=== PATIENT | male | born 1980 | race Caucasian/White ===

== ENCOUNTER 2019-05-17 18:00 | Emergency (ER) | payer SELFPAY ==
[~2019-05-17] VITALS: Ht 170.2 cm; Wt 79.4 kg
--- NOTE | 2019-05-17 18:24 | ED Integumentary General ---
General Chief Complaint: Allergic Reaction Stated Complaint: RASH ON BOTH ARMS Source: patient Exam Limitations: no limitations History of Present Illness Date Seen by Provider: May 17, 2019 Time Seen by Provider: 18:08 Initial Comments Here with report of rash to both arms. Started on his hands and then moved up to his arms only in the sun exposed areas. He states that he's had this rash, each time he's had a moderate amount of sun exposure for many years. Does report that he had a bad sunburn as a child. Patient did take Benadryl and that do not really help. Has had prednisone or steroid in the past and that has helped. Also noted to be hypertensive and states that he is usually on lisinopril 10 mg but he has been out of that since he moved here. He is seeking a new doctor. Denies other concerns. Timing/Duration: getting worse, other (2-3 days) Severity: moderate Location: extremities (arms and some exposed areas to the sleeve) Possible Cause: other Modifying Factors: improves with antihistamine Associated Symptoms: rash Allergies and Home Medications Patient Home Medication List Home Medication List Reviewed: Yes Review of Systems Review of Systems Constitutional: see HPI; No chills, No fever Respiratory: no symptoms reported Cardiovascular: no symptoms reported Skin: see HPI, pruritus, rash Past Kepbzrp-Ykojlq-Yzhcqh Hx Past Med/Social Hx: Reviewed Nursing Past Med/Soc Hx Patient Social History Alcohol Use: Denies Use Recreational Drug Use: No Smoking Status: Current Everyday Smoker Recent Foreign Travel: No Contact w/Someone Who Travel: No Past Medical History Surgeries: Yes Abdominal Respiratory: No (to have surgeries or other medical history significant) Cardiac: Yes Hypertension Family Medical History No Pertinent Family Hx Physical Exam Vital Signs Capillary Refill : General Appearance: WD/WN, no apparent distress Cardiovascular: regular rate, rhythm, no murmur Respiratory: lungs clear, normal breath sounds Skin: warm/dry Skin Problem Location: upper extremities Skin Problem Character: macules, rash Progress/Results/Core Measures Progress Progress Note : Progress Note Seen and evaluated. Discussed treatment options. We will prescribe prednisone for 5 days. Also due to his hypertension, I will prescribe one month of lisinopril 10 mg tablets and he will seek medical care. Discharged home with return precautions. Patient verbalize understanding instructions and agreement with plan. Departure Impression Primary Impression: Rash Additional Impression: Hypertension Qualified Codes: I10 - Essential (primary) hypertension Disposition: HOME, SELF-CARE Condition: Improved Departure-Patient Inst. Decision time for Depature: 18:22 Referrals: NO,LOCAL PHYSICIAN (PCP/Family) Primary Care Physician Patient Instructions: High Blood Pressure (DC), Skin Rash (DC) Add. Discharge Instructions: All discharge instructions reviewed with patient and/or family. Voiced understanding. Exposure to the sun and you may use sunscreen such as sunscreen for faces at least 50 sunblock. It is very important that he seek local physician and establish care due to your blood pressure. Take medications as directed. Return for worse pain, fever, vomiting, increasing rash for blood pressure or other concerns as needed. You may use Benadryl the generic diphenhydramine 25 mg every 4-6 hours as needed for itching. Scripts Lisinopril (Lisinopril) 10 Mg Tablet 10 MG PO DAILY, #30 TAB 0 Refills Prov: ALEN PACHECO MD 05/17/19 Prednisone (Prednisone) 20 Mg Tab 40 MG PO DAILY, #10 TAB 0 Refills Prov: ALEN PACHECO MD 05/17/19 Work/School Note: Local Medical Staff Listing ALEN PACHECO MD May 17, 2019 18:24
[2019-05-17] MEDS ORDERED: PRD20T PO (18:25)
[2019-05-17] MEDS ORDERED: LISI10TA2 PO (18:25)
[2019-05-17 18:26] VITALS: BP 156/113
--- OUTSIDE RECORDS SUMMARY | 2019-05-17 18:41 | XMS REPORT | Continuity of Care Document ---
Author Organization Unknown Address Unknown Phone Unavailable Allergies There is no data. Medications There is no data. Problems Date Dx Coded Attending Type Code Diagnosis Diagnosed By 03/16/2019 LARRY OLMOS V [id number] Toe Pain 03/16/2019 LARRY OLMOS V S97.111A Crushing injury of right great toe, initial encounter 03/31/2019 LARRY OLMOS V [id number] Foot Injury 03/31/2019 LARRY OLMOS V S97.111A Crushing injury of right great toe, initial encounter Procedures There is no data. Results Radiology Report from [id number] on 03/16/2019 16:27:44 PROCEDURE: XR FOOT RIGHT AP LATERAL AND OBLIQUESTUDY DATE: March 16, 2019CLINICAL INDICATION / HISTORY: crush injury, right toe pain, swelling. Crushing injury of right great toe initial encounterTECHNIQUE: AP, lateral and oblique views of the right foot.COMPARISON: None availableFINDINGS: No acute fracture, dislocation, or joint pathology. Small os trigonum noted. Normal mineralization and alignment. The soft tissues are unremarkable.IMPRESSION: No acute osseous abnormality.Electronically signed by Ishmael Brown, MDDT: 03/16/2019 4:26 PM Encounters ACCT No. Visit Date/Time Discharge Status Pt. Type Provider Facility Loc./Unit Complaint [id number] 03/31/2019 10:29:59 03/31/2019 23:59:59 CLS Outpatient LARRY OLMOS [id number] 03/16/2019 15:42:27 03/16/2019 23:59:59 CLS Outpatient [facility] CCTXR [id number] 03/16/2019 15:14:42 03/16/2019 23:59:59 CLS Outpatient LARRY OLMOS
== END 2019-05-17 18:27 | disposition home or self-care (01) ==
LOC: ER 18:02
DX: R21 Rash and other nonspecific skin eruption (principal); I10 Essential (primary) hypertension; F17.210 Nicotine dependence, cigarettes, uncomplicated
CPT/HCPCS: 99282

== ENCOUNTER 2022-07-25 21:03 | Emergency (ER) | payer SELFPAY ==
[~2022-07-25] VITALS: Ht 167 cm; Wt 77.0 kg
[~2022-07-25 21:03] MED LIST: LISI10TA25 PO; PRD20T PO
[2022-07-25] MEDS ORDERED: IMATREX (21:20)
[2022-07-25] MEDS ORDERED: cogentin (21:20)
[2022-07-25] MEDS ORDERED: haldol (21:20)
[2022-07-25] MEDS ORDERED: ONDANSETRON 4 MG (ZOFRAN) ORAL DISSOLVE TAB PO STA (22:30)
[2022-07-25] MEDS ORDERED: ORPHENADRINE 60 MG/2 ML (NORFLEX) AMP (ED ONLY) IM ONE (22:30)
[2022-07-25] MEDS ORDERED: KETOROLAC 60 MG/2 ML VIAL IM ONE (22:30)
[2022-07-25] MEDS ORDERED: diphenhydrAMINE 50 MG/ML INJ (BENADRYL) IM ONE (22:30)
[2022-07-25] MEDS ORDERED: BUTA-249 PO (22:34)
[2022-07-25] MEDS ORDERED: ONDA4TAB11 PO (22:34)
--- NOTE | 2022-07-25 22:34 | ED Headache ---
General Chief Complaint: Head/Cervical Problems Stated Complaint: HEADACHE Nursing Triage Note: c/o migraine marshall x1 week. started on imitrex without improvement Source: patient History of Present Illness Date Seen by Provider: Jul 25, 2022 Time Seen by Provider: 22:21 Initial Comments PT ARRIVES VIA POV FROM HOME--STATES HIS GIRLFRIEND DROVE HIM HERE, AND HE LIVES WITH HER C/O HEADACHE STATES HE HAS HAD "BAD MIGRAINES FOR 3 YEARS"--WORK UP'S IN THE PAST HAVE ALL BEEN NEGATIVE. HE HAS NEVER SEEN A NEUROLOGIST OR HEADACHE SPECIALIST THIS HEADACHE STARTED 1 WEEK AGO, IS IN THE BACK OF HIS HEAD HEADACHE IS CONSTANT AND NOTHING WORSENS OR IMPROVES THE HEADACHE. HE WAS SEEN AT [facility] LAST WEEK FOR THIS PROBLEM, AND WAS GIVEN RX FOR IMITREX ( HAS NEVER TAKEN BEFORE) STATES HE HAS TAKEN 1 IMITREX 8 HOURS AGO--NO RELIEF. IS THE FIRST AND ONLY TIME HE HAS TAKEN IT . HAS NOT TAKEN ANYTHING ELSE AT ANY TIME IN THE LAST WEEK FOR THIS HEADACHE. + NAUSEA, NO VOMITING X 2 DAYS. NO NAUSEA NOW. + DIZZINESS NO DIARRHEA NO VISION CHANGES NO PARESTHESIAS OR MOTOR DEFICITS NO NECK PAIN OR STIFFNESS NO FEVER OR RECENT ILLNESS NO TICK/INSECT/MOSQUITO BITES. STATES HE HAS HAD INCREASED STRESS AT WORK FOR THE LAST WEEK. WORKS FOR A "[employer]" [employer]. NO KNOWN SICK CONTACTS. PCP: [facility] Allergies and Home Medications Allergies Coded Allergies: No Known Drug Allergies (Unverified , 07/25/22) Patient Home Medication List Home Medication List Reviewed: Yes Butalb/Acetaminophen/Caffeine (Esgic 50-325-40 mg Tablet) 50 Mg-325 Mg-40 Mg Tablet, 1-2 EACH PO Q6 Prescribed by: DEVANTE SHABAZZ on 07/25/222233 Lisinopril (Lisinopril) 10 Mg Tablet, 10 MG PO DAILY Prescribed by: ALEN PACHECO on 05/17/191824 Ondansetron (Ondansetron Odt) 4 Mg Tab.rapdis, 4 MG PO Q4H Prescribed by: DEVANTE SHABAZZ on 07/25/222233 Prednisone (Prednisone) 20 Mg Tab, 40 MG PO DAILY Prescribed by: ALEN PACHECO on 05/17/19 182 [cogentin] , (Reported) Entered as Reported by: JUD ROSADO on 07/25/222119 Last Action: New Order [haldol] , (Reported) Entered as Reported by: JUD ROSADO on 07/25/222119 Last Action: New Order [imatrex] , (Reported) Entered as Reported by: JUD ROSADO on 07/25/222119 Last Action: New Order Review of Systems Review of Systems Constitutional: see HPI, dizziness Eyes: No Symptoms Reported Ears, Nose, Mouth, Throat: no symptoms reported Respiratory: no symptoms reported Cardiovascular: no symptoms reported Gastrointestinal: see HPI Genitourinary: no symptoms reported Musculoskeletal: no symptoms reported Skin: no symptoms reported Psychiatric/Neurological: See HPI Past Ffyazdb-Cvdksz-Dqdgyp Hx Patient Social History Tobacco Use?: Yes Tobacco type used: Cigarettes Smoking Status: Smoker Current Status UNK Substance use?: No Alcohol Use?: No Pt feels they are or have been: No Immunizations Up To Date First/Initial COVID19 Vaccinat: na Seasonal Allergies Seasonal Allergies: No Past Medical History Surgery/Hospitalization HX: headaches, htn, depression, psych Surgeries: Yes (HERNIA REPAIR) Abdominal Respiratory: No Cardiac: Yes Hypertension Neurological: Yes Headaches /Migraines Genitourinary: No Gastrointestinal: No Musculoskeletal: No Endocrine: No HEENT: No Cancer: No Psychosocial: No Integumentary: Yes (rash in sunlight) Blood Disorders: No Family Medical History No Pertinent Family Hx Physical Exam Vital Signs Vital Signs - First Documented 07/25/22 21:16 Temp 37.1 Pulse 77 Resp 16 B/P (MAP) 154/104 (121) Pulse Ox 97 O2 Delivery Room Air Capillary Refill : Less Than 3 Seconds Height, Weight, BMI Height: 5'7.00" Weight: 175lbs. oz. 79.410058ns; 27.00 BMI Method:Stated General Appearance: WD/WN, no apparent distress, other (FILTHY, MALODOROUS. DOES NOT APPEAR TO BE IN ANY DISCOMFORT OR DISTRESS. ) HEENT: PERRL/EOMI, normal ENT inspection, TMs normal, pharynx normal, other (NO SINUS TENDERNESS OR NASAL DRAINAGE. EXTENSIVE DENTAL DECAY WITH MOST TEETH DECAYED DOWN TO GUMS) Neck: non-tender, full range of motion, supple, normal inspection Cardiovascular: regular rate, rhythm, no murmur Respiratory: normal breath sounds Gastrointestinal: non tender, soft Back: normal inspection, no CVA tenderness Extremities: normal range of motion, non-tender, no pedal edema Psychiatric: alert, oriented x 3 Crainal Nerves: normal hearing, normal speech, PERRL Coordination/Gait: normal gait Motor/Sensory: no motor deficit, no sensory deficit, no pronator drift Skin: normal color, warm/dry Progress/Results/Core Measures Results/Orders My Orders Orders - DEVANTE SHABAZZ DO Ondansetron Oral Dissolve Tab (Zofran (07/25/22 22:30) Orphenadrine Inj (Ed Only) (Norflex Inje (07/25/22 22:30) Ketorolac Injection (Toradol Injection) (07/25/22 22:30) Diphenhydramine Injection (Benadryl Inje (07/25/22 22:30) Im/Sub-Q Injection Non-Ab Ed (07/25/22 ) Vital Signs/I&O 07/25/22 07/25/22 21:16 22:52 Temp 37.1 37.1 Pulse 77 72 Resp 16 16 B/P (MAP) 154/104 (121) 152/99 Pulse Ox 97 98 O2 Delivery Room Air Room Air Blood Pressure Mean: 121 Progress Progress Note : Progress Note GIVEN TORADOL, NORFLEX AND BENADRYL IM AND ZOFRAN SL--HEADACHE STARTING TO IMPROVE AT DISMISSAL Departure Impression Primary Impression: Chronic headaches Disposition: 01 HOME, SELF-CARE Condition: Stable Departure-Patient Inst. Decision time for Depature: 22:32 Referrals: [facility] Patient Instructions: Headache, Adult, How to Keep Track of Your Headaches Add. Discharge Instructions: HOME, REST LOTS OF CLEAR LIQUIDS NO SMOKING FOLLOW WITH [facility] IN 2-3 DAYS IF NO BETTER, RETURN TO ER IF WORSE OTHERWISE KEEP YOUR APPOINTMENT LATER THIS MONTH AT [facility] All discharge instructions reviewed with patient and/or family. Voiced understanding. Scripts Butalb/Acetaminophen/Caffeine (Esgic 50-325-40 mg Tablet) 50 Mg-325 Mg-40 Mg Tablet 1-2 EACH PO Q6, #12 TAB Prov: DEVANTE SHABAZZ DO 07/25/22 Ondansetron (Ondansetron Odt) 4 Mg Tab.rapdis 4 MG PO Q4H for Nausea/Vomiting, #10 TAB Prov: DEVANTE SHABAZZ DO 07/25/22 DEVANTE SHABAZZ DO Jul 25, 2022 22:34
[2022-07-25 22:52] VITALS: BP 152/99
== END 2022-07-25 22:52 | disposition home or self-care (01) ==
LOC: EDUNIT# 21:03 → ER 21:04
DX: R51.9 Headache, unspecified (principal); F17.210 Nicotine dependence, cigarettes, uncomplicated; Z86.69 Personal history of other diseases of the nervous system and sense organs; Z28.310 Unvaccinated for COVID-19
CPT/HCPCS: 96372; 99284

== ENCOUNTER 2023-06-04 21:57 | Emergency (ER) | payer SELFPAY ==
[~2023-06-04] VITALS: Ht 170.1 cm; Wt 74.8 kg
[~2023-06-04 21:57] MED LIST changes: +BUTA-249 PO; +IMATREX; +ONDA4TAB11 PO; +cogentin; +haldol
[2023-06-04] MEDS ORDERED: ORPHENADRINE 60 MG/2 ML (NORFLEX) AMP (ED ONLY) IM ONE (22:15)
[2023-06-04] MEDS ORDERED: KETOROLAC INJ 60 MG/2 ML VIAL IM ONE (22:15)
[2023-06-04] MEDS ORDERED: diphenhydrAMINE INJ 50 MG/ML VIAL IM ONE (22:15)
[2023-06-04] MEDS ORDERED: KETO10TA PO (22:17)
[2023-06-04] MEDS ORDERED: TIZA4CAP PO (22:17)
--- NOTE | 2023-06-04 22:17 | ED Headache ---
General Chief Complaint: Head/Cervical Problems Stated Complaint: MIGRAINE Nursing Triage Note: PT AMB TO [facility] 6 WITH CC OF [place] X 1 WEEK. PT STATES WAS SEEN AT [facility] E[facility]LI[facility] THIS WEEK AND PX AMITRIPTYLINE. PT DENIES NUMBNESS AND BLURRED VISON. Allergies and Home Medications Allergies Coded Allergies: No Known Drug Allergies (Unverified , 07/25/22) Patient Home Medication List Butalb/Acetaminophen/Caffeine (Esgic 50-325-40 mg Tablet) 50 Mg-325 Mg-40 Mg Tablet, 1-2 EACH PO Q6 Prescribed by: DEVANTE SHABAZZ on 07/25/222233 Lisinopril (Lisinopril) 10 Mg Tablet, 10 MG PO DAILY Prescribed by: ALEN PACHECO on 05/17/191824 Ondansetron (Ondansetron Odt) 4 Mg Tab.rapdis, 4 MG PO Q4H Prescribed by: DEVANTE SHABAZZ on 07/25/222233 Prednisone (Prednisone) 20 Mg Tab, 40 MG PO DAILY Prescribed by: ALEN PACHECO on 05/17/191824 [cogentin] , (Reported) Entered as Reported by: UJD ROSADO on 07/25/222119 [haldol] , (Reported) Entered as Reported by: JUD ROSADO on 07/25/222119 [imatrex] , (Reported) Entered as Reported by: JUD ROSADO on 07/25/222119 Past Fnonxdx-Hdxgax-Bgybbg Hx Patient Social History Tobacco Use?: Yes Tobacco type used: Cigarettes Smoking Status: Current Everyday Smoker Substance use?: No Alcohol Use?: No Pt feels they are or have been: No Immunizations Up To Date First/Initial COVID19 Vaccinat: na Second COVID19 Vaccination Chi: na Third COVID19 Vaccination Date: na Seasonal Allergies Seasonal Allergies: No Past Medical History Surgery/Hospitalization HX: headaches, htn, depression, psych Surgeries: Yes (HERNIA REPAIR) Abdominal Respiratory: No Cardiac: Yes Hypertension Neurological: Yes Headaches /Migraines Genitourinary: No Gastrointestinal: No Musculoskeletal: No Endocrine: No HEENT: No Cancer: No Psychosocial: No Integumentary: Yes (rash in sunlight) Blood Disorders: No Family Medical History No Pertinent Family Hx Physical Exam Vital Signs Vital Signs - First Documented 06/04/23 22:06 Temp 36.1 Pulse 80 Resp 18 B/P (MAP) 146/107 (120) Pulse Ox 97 O2 Delivery Room Air Capillary Refill : Less Than 3 Seconds Height, Weight, BMI Height: 5'7.00" Weight: 175lbs. oz. 79.558721kx; 25.00 BMI Method:Stated Progress/Results/Core Measures Results/Orders Vital Signs/I&O 06/04/23 22:06 Temp 36.1 Pulse 80 Resp 18 B/P (MAP) 146/107 (120) Pulse Ox 97 O2 Delivery Room Air Blood Pressure Mean: 120 Departure Impression Primary Impression: Chronic headaches Disposition: HOME, SELF-CARE Condition: Stable Departure-Patient Inst. Decision time for Depature: 22:15 Referrals: NAE LEWIS DO [facility] [place] Patient Instructions: Headache, Adult (DC) Add. Discharge Instructions: CONTINUE YOUR DAILY MEDICATIONS PRESCRIBED FOLLOW UP WITH YOUR DR IN 2-3 DAYS IF NO BETTER All discharge instructions reviewed with patient and/or family. Voiced understanding. Scripts Tizanidine HCl (Zanaflex) 4 Mg Capsule 4 MG PO TID for Spasms, #15 CAP Prov: DEVANTE SHABAZZ DO 06/04/23 Ketorolac Tromethamine (Ketorolac Tromethamine) 10 Mg Tablet 10 MG PO Q6H for Pain, #15 TAB Prov: DEVANTE SHABAZZ DO 06/04/23 DEVANTE SHABAZZ DO Jun 04, 2023 22:17
[2023-06-04 22:49] VITALS: BP 143/100
== END 2023-06-04 22:49 | disposition home or self-care (01) ==
LOC: EDUNIT# 21:57 → ER 21:59
DX: R51.9 Headache, unspecified (principal); G89.29 Other chronic pain; F17.210 Nicotine dependence, cigarettes, uncomplicated; Z28.310 Unvaccinated for COVID-19; Z86.69 Personal history of other diseases of the nervous system and sense organs
CPT/HCPCS: 99284